=== PATIENT | male | born 1995 | race Hispanic/Latino ===

== ENCOUNTER 2018-06-02 13:49 | Emergency (ER) | payer SELFPAY ==
[~2018-06-02] VITALS: Ht 177.8 cm; Wt 59.0 kg
[2018-06-02] MEDS ORDERED: IBUPROFEN 600 MG TAB ONE (16:29)
[2018-06-02] MEDS ORDERED: IBUPROFEN 600 MG TAB PO ONE (16:45)
[2018-06-02 19:49] VITALS: BP 108/77
== END 2018-06-02 18:00 | disposition home or self-care (01) ==
LOC: ER 13:49
DX: M25.511 Pain in right shoulder (principal); S46.811A Strain of other muscles, fascia and tendons at shoulder and upper arm level, right arm, initial encounter; X50.0XXA Overexertion from strenuous movement or load, initial encounter; Y99.0 Civilian activity done for income or pay
CPT/HCPCS: 99283